=== PATIENT | female | born 1955 | race Asian ===

== ENCOUNTER → 2023-03-28 | Outpatient (CLI) | payer OTHER | END | disposition home or self-care (01) | LOC: RADMN 12:26 | PROVIDERS: ATTEND Internal Medicine | DX: M41.84 Other forms of scoliosis, thoracic region (principal); M47.814 Spondylosis without myelopathy or radiculopathy, thoracic region; R76.11 Nonspecific reaction to tuberculin skin test without active tuberculosis | CPT/HCPCS: 71045 ==

== ENCOUNTER → 2025-03-15 | Outpatient (CLI) | payer OTHER ==
[2025-03-15 13:10] LABS: PLATELET COUNT (AUTO) 333 K/uL (150-450); RED BLOOD CELL COUNT(AUTO) 4.62 MIL/uL (4.00-5.20); RED CELL DISTRIBUTION WIDTH 14.4 % (11.5-14.5); WHITE BLOOD COUNT (AUTO) 7.3 K/uL (4.5-11.0)
[2025-03-15 13:37] LABS: ASPARTATE AMINOTRANSFERASE 20.0 U/L (15-37); CALCIUM, TOTAL 9.0 mg/dL (8.8-10.5); CHOL/HDL RATIO 4.0 (3.9-5.7); CREATININE 2.1 mg/dL (0.60-1.30); GLOMERULAR FILTR. RATE CALC 23.0 mL/min (>60); GLUCOSE,RANDOM 171.0 mg/dL (70-110); LDL CHOL (CALC.) 152.0 mg/dL (0-130); SODIUM SERUM 135.0 mmol/L (136-145); TOTAL PROTEIN, SERUM 8.7 g/dL (6.4-8.2); UREA NITROGEN, BLOOD 40.0 mg/dL (7-18)
[2025-03-15 14:09] LABS: VITAMIN D,TOTAL (25-0H) 10 ng/mL (30-100)
[2025-03-15 14:10] LABS: VITAMIN B12 LEVEL 893 pg/mL (211-911)
[2025-03-15 14:14] LABS: FOLATE SERUM > 24.0 ng/mL (5.4-)
[2025-03-16 14:07] LABS: ALBUMIN/CREATININE RATIO 3298.0 mg/g creat (0-29); CREATININE, URINE (mALB) 43.6 mg/dL (Not Estab.)
== END | disposition home or self-care (01) ==
LOC: LABMN 11:18
PROVIDERS: ATTEND Legal Medicine
DX: I12.9 Hypertensive chronic kidney disease with stage 1 through stage 4 chronic kidney disease, or unspecified chronic kidney disease (principal); N18.9 Chronic kidney disease, unspecified; E11.22 Type 2 diabetes mellitus with diabetic chronic kidney disease; E11.65 Type 2 diabetes mellitus with hyperglycemia
CPT/HCPCS: 80053; 80061; 82043; 82306; 82570; 82607; 82746; 83036; 84443; 85025